=== PATIENT | male | born 1975 | race Caucasian/White ===

== ENCOUNTER 2017-06-20 02:13 | Inpatient (IN) | payer MEDICAID ==
[~2017-06-20] VITALS: Ht 180.3 cm; Wt 104.3 kg
[2017-06-20 02:47] LABS: BASOPHIL % 0.4 % (0-2); PLATELET COUNT 234 x10^3mcL (130-400)
[2017-06-20 02:59] LABS: CALCIUM 8.8 mg/dL (8.5-10.1); CHLORIDE SERUM 103 mmol/L (98-107); CREATININE SERUM 1.4 mg/dL (0.7-1.3); GFR1 59 mL/min; GLUCOSE SERUM 97 mg/dL (74-106); POTASSIUM SERUM 3.5 mmol/L (3.5-5.1); SODIUM SERUM 139 mmol/L (136-145)
[2017-06-20 03:01] LABS: RED CELL DISTRIBUTION WIDTH 15.7 % (11.5-14.5)
[2017-06-20 03:12] LABS: ALBUMIN 3.5 g/dL (3.4-5.0); ALKALINE PHOSPHATASE 61 U/L (46-116); ALT/SGPT 40 U/L (16-63); AST/SGOT 62 U/L (15-37); BILIRUBIN TOTAL 0.4 mg/dL (0.20-1.00); TOTAL PROTEIN, SERUM 7.2 g/dL (6.4-8.2)
[2017-06-20 03:23] LABS: CK-MB 95.7 ng/mL (0-3.6)
[2017-06-20 03:59] LABS: T4(THYROXINE) < 0.5 ug/dL (4.7-13.3)
[2017-06-20 05:34] LABS: AMYLASE 51 U/L (25-115); HDL CHOLESTEROL 42 mg/dL (40-60); LIPASE 196 IU/L (73-393); MAGNESIUM 2.1 mg/dL (1.8-2.4); PHOSPHOROUS 2.9 mg/dL (2.5-4.9)
[2017-06-20 05:35] LABS: CHOLESTEROL 351 mg/dL (<200); CHOLESTEROL/HDL RATIO 8.4; TRIGLYCERIDES 505 mg/dL (<150)
[2017-06-20 05:51] VITALS: BP 138/93
[2017-06-20 05:56] VITALS: BP 138/93
[2017-06-20 08:06] LABS: IRON 56 ug/dL (65-170); TOTAL IRON BINDING CAPACITY 396 ug/dL (250-450)
[2017-06-20 08:10] LABS: RED BLOOD CELLS 3.81 M/mm3 (4.52-5.90)
[2017-06-20 09:51] VITALS: BP 150/113
[2017-06-20 12:47] LABS: microscopic required? NO
[2017-06-20 12:58] LABS: UA SPECIFIC GRAVITY 1.025 (1.005-1.035); urine erythrocyte NEGATIVE (NEGATIVE)
[2017-06-20 13:24] LABS: AMPHETAMINE QUAL UR POSITIVE (NEG <=1000)
[2017-06-20 14:11] VITALS: BP 140/99
[2017-06-20 16:38] VITALS: BP 142/101
[2017-06-20 21:30] VITALS: BP 133/89
[2017-06-21 04:36] VITALS: BP 140/85
[2017-06-21 06:51] LABS: BASOPHIL % 0.4 % (0-2); PLATELET COUNT 232 x10^3mcL (130-400); RED CELL DISTRIBUTION WIDTH 15.7 % (11.5-14.5)
[2017-06-21 06:53] LABS: CARBON DIOXIDE 26.1 mmol/L (21-32); CHLORIDE SERUM 105 mmol/L (98-107); CREATININE SERUM 1.2 mg/dL (0.7-1.3); GFR1 > 60 mL/min; GLUCOSE SERUM 99 mg/dL (74-106); MAGNESIUM 1.8 mg/dL (1.8-2.4); PHOSPHOROUS 2.3 mg/dL (2.5-4.9); POTASSIUM SERUM 3.8 mmol/L (3.5-5.1); SODIUM SERUM 139 mmol/L (136-145)
[2017-06-21 09:50] VITALS: BP 134/96
[2017-06-21 12:04] VITALS: BP 115/77
[2017-06-21 18:41] VITALS: BP 125/85
[2017-06-21 20:59] VITALS: BP 130/86
[2017-06-22 05:42] VITALS: BP 107/70
[2017-06-22 06:09] LABS: BASOPHIL % 0.2 % (0-2); PLATELET COUNT 231 x10^3mcL (130-400)
[2017-06-22 06:29] LABS: RED CELL DISTRIBUTION WIDTH 15.9 % (11.5-14.5)
[2017-06-22 07:05] LABS: CALCIUM 7.7 mg/dL (8.5-10.1); CARBON DIOXIDE 22.8 mmol/L (21-32); CHLORIDE SERUM 104 mmol/L (98-107); CREATININE SERUM 1.1 mg/dL (0.7-1.3); GFR1 > 60 mL/min; GLUCOSE SERUM 93 mg/dL (74-106); MAGNESIUM 1.8 mg/dL (1.8-2.4); PHOSPHOROUS 2.7 mg/dL (2.5-4.9); POTASSIUM SERUM 3.4 mmol/L (3.5-5.1); SODIUM SERUM 137 mmol/L (136-145)
[2017-06-22 09:28] VITALS: BP 115/84
[2017-06-22] MEDS ORDERED: SYN25 PO (10:12)
[2017-06-22] MEDS ORDERED: LIPI20 PO (10:29)
[2017-06-22] MEDS ORDERED: METFORMIN HCL500 MG PO (10:51)
[2017-06-22 11:19] VITALS: BP 115/84
== END 2017-06-22 12:00 | disposition home or self-care (01) | DRG 424 ==
LOC: ED 02:13 → DU 04:47 → UNDODEPER 05:52 → DU 06-22 12:00
PROVIDERS: Emergency Medicine; Student in an Organized Health Care Education/Training Program; ADMIT Family Medicine
DX: E03.9 Hypothyroidism, unspecified (principal); N17.0 Acute kidney failure with tubular necrosis; G93.41 Metabolic encephalopathy; M62.82 Rhabdomyolysis; E11.65 Type 2 diabetes mellitus with hyperglycemia; E78.5 Hyperlipidemia, unspecified; M54.5 Low back pain; G89.29 Other chronic pain; D53.9 Nutritional anemia, unspecified; F17.210 Nicotine dependence, cigarettes, uncomplicated; Z68.32 Body mass index [BMI] 32.0-32.9, adult
CPT/HCPCS: 82962; 83880; G0480; J7030; Q0092

== ENCOUNTER 2018-07-05 22:48 | Emergency (ER) | payer MEDICAID ==
[~2018-07-05] VITALS: Ht 180.3 cm; Wt 110.7 kg
[~2018-07-05 22:48] MED LIST: LIPI20 PO; METFORMIN HCL500 MG PO; SYN25 PO
[2018-07-05 23:12] VITALS: Ht 180.3 cm; Wt 110.7 kg
[2018-07-06 00:19] LABS: PLATELET COUNT 189 x10^3mcL (130-400); RED CELL DISTRIBUTION WIDTH 15.4 % (11.5-14.5)
[2018-07-06 00:20] LABS: BASOPHIL % 0.9 % (0-2)
[2018-07-06 00:22] LABS: CARBON DIOXIDE 27.5 mmol/L (21-32); CREATININE SERUM 1.4 mg/dL (0.7-1.3); POTASSIUM SERUM 3.3 mmol/L (3.5-5.1)
[2018-07-06 01:23] LABS: UA SPECIFIC GRAVITY 1.025 (1.005-1.035); microscopic required? YES; urine erythrocyte 2+ (NEGATIVE)
[2018-07-06 01:44] VITALS: BP 120/74
== END 2018-07-06 01:44 | disposition home or self-care (01) ==
LOC: ED 22:48
PROVIDERS: Emergency Medicine
DX: N45.3 Epididymo-orchitis (principal); I10 Essential (primary) hypertension; E11.9 Type 2 diabetes mellitus without complications; E05.90 Thyrotoxicosis, unspecified without thyrotoxic crisis or storm; Z98.890 Other specified postprocedural states
CPT/HCPCS: J1885; J2270; J2405; J7030; Q0092

== ENCOUNTER 2018-10-06 04:22 | Emergency (ER) | payer MEDICAID ==
[2018-10-06 04:25] VITALS: Ht 182.9 cm
[2018-10-06 05:02] LABS: BASOPHIL % 0.3 % (0-2); PLATELET COUNT 214 x10^3mcL (130-400)
[2018-10-06 05:12] LABS: CALCIUM 8.1 mg/dL (8.5-10.1); CARBON DIOXIDE 28.6 mmol/L (21-32); CREATININE SERUM 1.7 mg/dL (0.7-1.3); POTASSIUM SERUM 3.8 mmol/L (3.5-5.1)
[2018-10-06 05:17] LABS: ALBUMIN 3.4 g/dL (3.4-5.0); BILIRUBIN TOTAL 0.33 mg/dL (0.20-1.00); TOTAL PROTEIN, SERUM 6.9 g/dL (6.4-8.2)
[2018-10-06 05:22] LABS: RED CELL DISTRIBUTION WIDTH 15.8 % (11.5-14.5)
[2018-10-06 06:10] VITALS: BP 120/74
== END 2018-10-06 06:29 | disposition home or self-care (01) ==
LOC: ED 04:22
PROVIDERS: Emergency Medicine
DX: R60.9 Edema, unspecified (principal); I10 Essential (primary) hypertension; E11.9 Type 2 diabetes mellitus without complications; E78.00 Pure hypercholesterolemia, unspecified; E05.90 Thyrotoxicosis, unspecified without thyrotoxic crisis or storm; Z95.5 Presence of coronary angioplasty implant and graft
CPT/HCPCS: 36415; 83880; J1885; Q0092

== ENCOUNTER 2018-12-09 18:26 | Emergency (ER) | payer MEDICAID ==
[~2018-12-09] VITALS: Ht 180.3 cm; Wt 107.0 kg
[2018-12-09 18:28] VITALS: Ht 180.3 cm; Wt 107.0 kg
[2018-12-09 20:25] LABS: BASOPHIL % 0.4 % (0-2); PLATELET COUNT 216 x10^3mcL (130-400)
[2018-12-09 20:33] LABS: CALCIUM 8.7 mg/dL (8.5-10.1); CARBON DIOXIDE 30.4 mmol/L (21-32); CHLORIDE SERUM 102 mmol/L (98-107); CREATININE SERUM 1.8 mg/dL (0.7-1.3); GFR1 44 mL/min; GLUCOSE SERUM 95 mg/dL (74-106); POTASSIUM SERUM 4.1 mmol/L (3.5-5.1); SODIUM SERUM 139 mmol/L (136-145)
[2018-12-09 20:37] LABS: ALKALINE PHOSPHATASE 64 U/L (46-116); ALT/SGPT 33 U/L (16-63); AST/SGOT 90 U/L (15-37); BILIRUBIN TOTAL 0.47 mg/dL (0.20-1.00); CHOLESTEROL 193 mg/dL (<200); TOTAL PROTEIN, SERUM 6.4 g/dL (6.4-8.2)
[2018-12-09 20:38] LABS: ALBUMIN 3.3 g/dL (3.4-5.0)
[2018-12-09 23:26] LABS: FREE T4 0.1 ng/dL (0.76-1.46)
[2018-12-09 23:28] LABS: FREE THYROXINE INDEX 0.2 ug/dL (1.4-4.5); T4(THYROXINE) 0.9 ug/dL (4.7-13.3)
[2018-12-10 00:12] LABS: AMPHETAMINE QUAL UR NONE DETECTED (See below)
[2018-12-10 00:24] VITALS: BP 116/67
[2018-12-10 00:33] LABS: T3 TOTAL 0.13 ng/mL
== END 2018-12-10 00:24 | disposition short-term general hospital (02) ==
LOC: ED 18:26
PROVIDERS: Specialist
DX: M62.82 Rhabdomyolysis (principal); R60.1 Generalized edema; I82.612 Acute embolism and thrombosis of superficial veins of left upper extremity; I10 Essential (primary) hypertension; E11.9 Type 2 diabetes mellitus without complications; E03.9 Hypothyroidism, unspecified; E78.00 Pure hypercholesterolemia, unspecified; Z95.5 Presence of coronary angioplasty implant and graft
CPT/HCPCS: 36415; 82962; 83880; 84439; G0480; J7030; Q0092